=== PATIENT | female | born 1955 | race African-American/Black ===

== ENCOUNTER 2016-12-08 11:29 | Emergency (ER) | payer OTHER ==
[~2016-12-08] VITALS: Ht 165.1 cm; Wt 136.1 kg
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
[2016-12-08] MEDS ORDERED: TYLENOL EXTRA500 MG ORAL (12:51)
[2016-12-08 13:08] VITALS: BP 130/80
--- NOTE | 2016-12-09 08:33 | Diagnostic Imaging Report ---
Indication: Pain 3 views of the left knee were obtained. Findings: There is severe osteoarthritis of the knee with extensive hypertrophic spur formation especially in the patellofemoral compartment. Bones are osteopenic. No obvious fracture identified. Extensive calcification of the popliteal artery and unnamed tibial vessels noted. Impression: Severe osteoarthritis
== END 2016-12-08 13:10 | disposition home or self-care (01) ==
LOC: EMR 12:47
DX: R51 Headache (principal); Z04.1 Encounter for examination and observation following transport accident; M25.562 Pain in left knee; R07.81 Pleurodynia; E11.9 Type 2 diabetes mellitus without complications; I10 Essential (primary) hypertension; R60.0 Localized edema
CPT/HCPCS: 29530; 99283

== ENCOUNTER 2017-12-07 07:55 | Emergency (ER) | payer MEDICAID, OTHER ==
[~2017-12-07] VITALS: Ht 165.1 cm; Wt 136.1 kg
[~2017-12-07 07:55] MED LIST: TYLENOL EXTRA500 MG ORAL
--- NOTE | 2017-12-07 09:16 | Emergency Room Report ---
History of Present Illness General Chief Complaint: Lower Extremity Injury Source: Patient Present Illness HPI Patient twisted her knee a week ago. Today she fell on the side of her knee. She has increased pain there - rated 6-8/10, aching with some minimal swelling. She is able to walk on it. She has degenerative arthritis. She took Motrin last night with some relief. She is not on blood thinners. She used an elastic wrap with some minimal help. No numbness, fever, redness of the skin. She has chronic back pain which is somewhat increased after the initial fall. No chest pain, NVD, dysuria, headache, other joint pain. H/O HTN and DM both controlled according to patient. Allergies: Coded Allergies: No Known Allergies (Unverified , 12/08/16) Patient History Past Medical History: see triage record Social History: Denies: smoking Social History Narrative at home Reviewed Nursing Documentation: PMH: Agreed; PSxH: Agreed Nursing Documentation-PMH Past Medical History: No History, Except For Hx Cardiac Problems: Yes - high cholesterol Hx Hypertension: Yes Hx Diabetes: Yes Review of Systems All Other Systems: negative except mentioned in HPI Physical Exam Vital Signs Date Time Temp Pulse Resp B/P (MAP) Pulse Ox O2 Delivery O2 Flow Rate FiO2 12/07/17 08:03 98.0 63 20 141/84 96 Room Air 98.1 Sp02 EP Interpretation: reviewed, normal General Appearance: well appearing, no apparent distress Head: normocephalic, atraumatic ENT: hearing grossly normal, normal voice, moist mucus membranes Neck: full range of motion, supple Respiratory: no respiratory distress, speaking full sentences Cardiovascular #2: 2+ dorsalis pedis (R), 2+ dorsalis pedis (L) Gastrointestinal: non tender, overweight Musculoskeletal: no calf tenderness, pelvis stable, decreased range of mation - R knee with decreased flexion, swelling - bilateral knees, other - medial meniscus tenderness, no drawer, lateral ligaments stable with medial laxity = minimal Neurologic: alert, motor strength/tone normal, sensory intact, other - walks with limp and cane Psychiatric: mood/affect normal Skin: no rash Medical Decision Making Diagnostic Impression: Primary Impression: Contusion of knee, right Qualified Codes: S80.01XA - Contusion of right knee, initial encounter Additional Impressions: Osteoarthritis Qualified Codes: M15.0 - Primary generalized (osteo)arthritis Medial meniscus tear Qualified Codes: S83.221A - Peripheral tear of medial meniscus, current injury , right knee, initial encounter Chondrocalcinosis articularis ER Course Patient fell onto her knee. Differential includes exacerbation of osteoarthritis, meniscal tear, contusion and sprain amongst others. Based on exam, doubt fracture. X-rays are indicated. Exam there is a medial meniscal partial tear. The ligaments are not open. Knee immobilization is indicated. Also patient will be given a dose of Motrin. X-rays show osteoarthritis and extensive calcification of the prepatellar and post patellar bursas. The knee immobilizer was applied and position was excellent with good results. Neurovascular was checked by me and normal afterwards. The patient is stable for outpatient observation and treatment Last Vital Signs Date Time Temp Pulse Resp B/P (MAP) Pulse Ox O2 Delivery O2 Flow Rate FiO2 12/07/17 09:31 98.0 12/07/17 09:30 71 20 135/81 96 Room Air Status: improved Disposition: HOME, SELF-CARE Condition: Improved Scripts Tramadol Hcl* (ULTRAM*) 50 Mg Tablet 50 MG ORAL Q6H PRN for For Pain, #10 TAB 0 Refills Prov: Jeancarlos Briceno M.D. 12/07/17 Ibuprofen* (MOTRIN*) 600 Mg Tablet 600 MG ORAL Q6H PRN for For Pain, #20 TAB Prov: Jeancarlos Briceno M.D. 12/07/17 Jeancarlos Briceno M.D. Dec 07, 2017 09:16
[2017-12-07] MEDS ORDERED: IBUPROFEN600 MG ORAL (09:20)
[2017-12-07] MEDS ORDERED: TRAMADOL HCL50 MG ORAL (09:20)
[2017-12-07 09:30] VITALS: BP 135/81
--- NOTE | 2017-12-07 14:33 | Diagnostic Imaging Report ---
Indication: Right knee pain Technique: 3 views of the right knee Comparison: None Findings: Multiple eggshell calcifications are seen projected in the expected region of the posterior knee joint, the anterior knee joint and in the suprapatellar bursa, the latter quite large. There are degenerative changes of the medial and lateral joint compartments, and especially of the patellofemoral joint compartment, all with joint space narrowing and osteophytes. No acute fractures. No dislocations. No definite suprapatellar effusion. There are vascular calcifications Impression: No acute bony trauma Degenerative changes, as described Multiple and in some cases very large calcifications in the expected region of the joint space and suprapatellar bursa. 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
== END 2017-12-07 09:32 | disposition home or self-care (01) ==
LOC: EMR 09:26
DX: S80.01XA Contusion of right knee, initial encounter (principal); X50.1XXA Overexertion from prolonged static or awkward postures, initial encounter; Y92.9 Unspecified place or not applicable; M11.261 Other chondrocalcinosis, right knee; G89.29 Other chronic pain; M54.9 Dorsalgia, unspecified; I10 Essential (primary) hypertension; M17.11 Unilateral primary osteoarthritis, right knee; E11.9 Type 2 diabetes mellitus without complications; E78.00 Pure hypercholesterolemia, unspecified
CPT/HCPCS: 99284